=== PATIENT | female | born 1980 | race Caucasian/White ===

== ENCOUNTER 2016-09-02 12:01 | Emergency (ER) | payer OTHER ==
[~2016-09-02] VITALS: Ht 165.1 cm; Wt 68.0 kg
[2016-09-02 16:09] VITALS: BP 141/69
== END 2016-09-02 16:51 | disposition home or self-care (01) ==
LOC: EMS 12:17
DX: S09.90XA Unspecified injury of head, initial encounter (principal); Y04.2XXA Assault by strike against or bumped into by another person, initial encounter; Y93.89 Activity, other specified; Y92.810 Car as the place of occurrence of the external cause; Y99.8 Other external cause status
CPT/HCPCS: 70450; 99284